=== PATIENT | female | born 1975 | race Caucasian/White ===

== ENCOUNTER → 2019-01-28 | Outpatient (CLI) | payer BC | LOC: OD 14:50 | PROVIDERS: ATTEND Obstetrics & Gynecology Gynecology | DX: N91.1 Secondary amenorrhea (principal) | CPT/HCPCS: 36415; 84702 ==

== ENCOUNTER 2019-07-25 12:48 | Emergency (ER) | payer BC ==
--- NOTE | 2019-07-25 13:16 | ER Document Report ---
ED Medical Screen (RME) - General Chief Complaint: Shortness Of Breath Stated Complaint: SHORTNESS OF BREATH/DIZZINESS Time Seen by Provider: 07/25/19 13:07 Primary Care Provider: ALDEN SOUZA MD [Primary Care Provider] - Follow up as needed Notes: 44-year-old female with remote history of mitral valve prolapse presents the emergency department with shortness of breath that is accompanied by lightheadedness. Patient states that she will spontaneously get acute shortness of breath like the feeling of "when someone comes up behind you and startles you and take your breath away", becomes lightheaded, then shortly after has weakness. No recent illness, no fevers, no chest pain, no nausea vomiting, no diaphoresis, no positive family history for early cardiac disease. Exam: Well-appearing no acute distress, lungs clear to auscultation all isabel, regular cardiac rate and rhythm, S1-S2 heard I have greeted and performed a rapid initial assessment of this patient. A comprehensive ED assessment and evaluation of the patient, analysis of test results and completion of medical decision making process will be conducted by an additional ED providers. TRAVEL OUTSIDE OF THE [place] IN LAST 30 DAYS: No - Related Data Allergies/Adverse Reactions: No Known Allergies Allergy (Verified 07/25/19 13:05) Past Medical History - Social History Chew tobacco use (# tins/day): No Frequency of alcohol use: None Drug Abuse: None Doctor's Discharge - Discharge Referrals: ALDEN SOUZA MD [Primary Care Provider] - Follow up as needed
[2019-07-25 13:42] LABS: ABSOLUTE EOSINOPHILS # (AUTO) 0.1 10^3/uL (0.0-0.6); ABSOLUTE LYMPHOCYTES (AUTO) 1.3 10^3/uL (0.5-4.7); ABSOLUTE MONOCYTES (AUTO) 0.4 10^3/uL (0.1-1.4); ABSOLUTE NEUT (AUTO) 1.9 10^3/uL (1.7-8.2); BASOPHILS % (AUTO) 1.1 % (0-2); EOSINOPHILS % (AUTO) 2.1 % (0-6); HEMATOCRIT 37.4 % (36.0-47.0); HEMOGLOBIN 12.8 g/dL (12.0-15.5); LYMPHOCYTES % (AUTO) 35.4 % (13-45); MEAN CORPUSCULAR HEMOGLOBIN 33.4 pg (27.0-33.4); MEAN CORPUSCULAR HGB CONC 34.3 g/dL (32.0-36.0); MEAN CORPUSCULAR VOLUME 97 fl (80-97); MONOCYTES % (AUTO) 9.9 % (3-13); PLATELET COUNT 239 10^3/uL (150-450); RED BLOOD COUNT 3.84 10^6/uL (3.72-5.28); RED CELL DISTRIBUTION WIDTH 12.4 % (11.5-14.0); SEGMENTED NEUTROPHILS % (AUTO) 51.5 % (42-78); TOTAL CELLS COUNTED % (AUTO) 100 %; WHITE BLOOD COUNT 3.7 10^3/uL (4.0-10.5)
[2019-07-25 13:45] LABS: APPEARANCE,URINE CLEAR; BILIRUBIN,URINE NEGATIVE (NEGATIVE); COLOR,URINE YELLOW; GLUCOSE, URINE NEGATIVE (NEGATIVE); KETONES,URINE TRACE mg/dL (NEGATIVE); LEUKOCYTE ESTERASE,URINE NEGATIVE (NEGATIVE); NITRITE,URINE NEGATIVE (NEGATIVE); PROTEIN,URINE NEGATIVE (NEGATIVE); URINE SPECIFIC GRAVITY 1.018; UROBILINOGEN,URINE NEGATIVE mg/dL (<2.0)
[2019-07-25 14:01] LABS: ALBUMIN 4.8 g/dL (3.5-5.0); ALKALINE PHOSPHATASE 54 U/L (38-126); ANION GAP 10 (5-19); ASPARTATE AMINO TRANSFERASE 35 U/L (14-36); BILIRUBIN,DIRECT 0.1 mg/dL (0.0-0.4); BILIRUBIN,TOTAL 0.6 mg/dL (0.2-1.3); BLOOD UREA NITROGEN 17 mg/dL (7-20); CALCIUM 9.6 mg/dL (8.4-10.2); CARBON DIOXIDE 27 mmol/L (22-30); CHLORIDE 103 mmol/L (98-107); GLUCOSE 95 mg/dL (75-110); TOTAL PROTEIN 7.9 g/dL (6.3-8.2)
--- NOTE | 2019-07-25 14:13 | RADIOLOGY REPORT (SQ) ---
EXAM DESCRIPTION: CHEST 2 VIEWS COMPLETED DATE/TIME: 07/25/2019 1:38 pm REASON FOR STUDY: SOB COMPARISON: None. EXAM PARAMETERS: NUMBER OF VIEWS: two views TECHNIQUE: Digital Frontal and Lateral radiographic views of the chest acquired. RADIATION DOSE: NA LIMITATIONS: none FINDINGS: LUNGS AND PLEURA: No opacities, masses or pneumothorax. No pleural effusion. MEDIASTINUM AND HILAR STRUCTURES: No masses or contour abnormalities. HEART AND VASCULAR STRUCTURES: Heart normal size. No evidence for failure. BONES: No acute findings. HARDWARE: None in the chest. OTHER: No other significant finding. IMPRESSION: NO ACUTE RADIOGRAPHIC FINDING IN THE CHEST. TECHNICAL DOCUMENTATION: JOB ID: [id number] [employer]- All Rights Reserved Reading location - IP/workstation name: [email or web address]
--- NOTE | 2019-07-25 16:47 | ER Document Report ---
Entered by RC RUIZ SCRIBE 07/25/19 4122 Acting as scribe for:ALPHONSE HO MD ED General - General Chief Complaint: Shortness Of Breath Stated Complaint: SHORTNESS OF BREATH/DIZZINESS Time Seen by Provider: 07/25/19 13:07 Primary Care Provider: ALDEN SOUZA MD [ACTIVE STAFF] - Follow up as needed Mode of Arrival: Ambulatory Information source: Patient Notes: 44-year-old female previously diagnosed at age 20 with mitral valve prolapse that presents to the emergency department today from urgent care with complaints of what she describes as a "whoosh" sensation in her chest, further described as "how you feel when someone startles you". Patient states that yesterday this happened one time so she did not think anything of it. Patient states this morning she began having those symptoms again, stating that this sensation lasts for approximately 60 seconds, generally occurring 3-5 minutes apart. Patient states that she noticed this happens more frequently when she is "up and walking around" and that if she lays down she rarely has it happen. Patient states since she has been here she has only had this happen once. Patient states that when this "whoosh" sensation happens she feels lightheaded and like her heart is "fluttering". Patient states that she does not get short of breath with this, but she does "feel like she needs to take deep breaths to get through it". Patient also adds that after these symptoms subside she feels "generally weak and tired". Patient states that the only medications that she currently takes are multivitamins and paroxetine "for hot flashes". Patient states she has been taking the paroxetine for x3 months. 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 The previously mentioned mitral valve prolapse was diagnosed with an echocardiogram after a syncopal event at age 20. Patient states she has since had an echocardiogram performed (2009) which was unremarkable. She states that she was told "it must have just resolved now". Patient also wore a Holter monitor at that time with unremarkable results. Patient denies any chest pain, feeling like her heart was racing, diaphoresis, or syncope today. Pertinent PMHx/PSHx: Mitral valve prolapse. Currently taking paroxetine for hot flashes, stating that she is "perimenopausal". PCP: Otf TRAVEL OUTSIDE OF THE [place] 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 denies: Diaphoresis EENT: No symptoms reported Cardiovascular: See HPI, Other. denies: Chest pain, Syncope Respiratory: See HPI, Other. denies: Short of breath Gastrointestinal: No symptoms reported Genitourinary: No symptoms reported Female Genitourinary: No symptoms reported, Last menstrual period - "perimenopau eleuterio" Musculoskeletal: No symptoms reported Skin: No symptoms reported Hematologic/Lymphatic: No symptoms reported Neurological/Psychological: No symptoms reported -: Yes All other systems reviewed and negative Physical Exam - Vital signs Vitals: Temp Pulse BP Pulse Ox 98.2 F 77 123/77 100 07/25/19 13:04 07/25/19 13:04 07/25/19 13:04 07/25/19 13:04 - Notes Notes: Physical Exam: General: Alert, appears well. HEENT: Normocephalic. Atraumatic. PERRL. Extraocular movements intact. Oropharynx clear. No carotid bruits. Neck: Supple. Non-tender. Respiratory: No respiratory distress. Clear and equal breath sounds bilaterally. Cardiovascular: Regular rate and rhythm. No murmur heard. Abdominal: Normal Inspection. Non-tender. No distension. Normal Bowel Sounds. Back: No gross abnormalities. Extremities: Moves all four extremities. Upper extremities: Normal inspection. Normal ROM. Lower extremities: Normal inspection. No edema. Normal ROM. Neurological: Normal cognition. AAOx4. Normal speech. Psychological: Normal affect. Normal Mood. Skin: Warm. Dry. Normal color. Course - Re-evaluation Re-evalutation: 07/25/19 17:36 The patient was allowed to walk around the department with a telemetry pack on. She had multiple episodes of her symptoms while she was walking, however reviewing the monitor strips during this time showed no rhythm changes or other abnormalities. Chest x-ray is normal, EKG shows first-degree AV block with no other abnormality. D-dimer is undetectable. TSH is normal. Electrolytes are normal. - Vital Signs Vital signs: Temp Pulse Resp BP Pulse Ox 98.2 F 77 130/85 H 100 07/25/19 13:04 07/25/19 13:04 07/25/19 15:01 07/25/19 15:01 - Laboratory Result Diagrams: 07/25/19 13:25 07/25/19 13:25 Laboratory results interpreted by me: 07/25/19 07/25/19 13:25 13:25 WBC 3.7 L Urine Ketones TRACE H Urine Blood SMALL H - Diagnostic Test Radiology reviewed: Image reviewed, Reports reviewed - Chest x-ray is unremarka ble. - EKG Interpretation by Me EKG shows normal: Sinus rhythm, [place], Intervals, QRS Complexes, ST-T Waves Rate: Normal - 75 Heart block present: 1st Degree When compared to previous EKG there are: Previous EKG unavailable Discharge - Discharge Clinical Impression: Palpitations with regular cardiac rhythm Condition: Stable Disposition: HOME, SELF-CARE Additional Instructions: No explanation for the symptoms you have been feeling could be found on your evaluation today. You should get plenty of rest and drink plenty of fluids. Pay particular attention to the symptoms you are having, what tends to provoke them, which tends to make them better. Also how frequently they occur and how long they last. Follow-up with your primary care provider on Saturday if you continue to have the symptoms. RETURN TO THE EMERGENCY ROOM IF ANY NEW OR WORSENING SYMPTOMS. Referrals: DIPIKA HERRERA MD [Primary Care Provider] - Follow up in 3-5 days Scribe Attestation: 07/25/19 17:37 I personally performed the services described in the documentation, reviewed and edited the documentation which was dictated to the scribe in my presence, and it accurately records my words and actions. I personally performed the services described in the documentation, reviewed and edited the documentation which was dictated to the scribe in my presence, and it accurately records my words and actions.
[2019-07-25 17:53] VITALS: BP 120/84
--- NOTE | 2019-07-26 01:15 | EKG REPORT ---
SEVERITY:- ABNORMAL ECG - SINUS RHYTHM FIRST DEGREE AV BLOCK : Confirmed by: Viktoria Mcgee MD 26-Jul-2019 01:14:16
== END 2019-07-25 17:53 | disposition home or self-care (01) ==
LOC: ER 12:48
DX: R00.2 Palpitations (principal); R06.02 Shortness of breath; R42 Dizziness and giddiness
CPT/HCPCS: 36415; 71046; 80053; 81001; 84443; 84484; 85025; 85379; 93005; 93010; 99285